=== PATIENT | female | born 1970 | race Caucasian/White ===

== ENCOUNTER 2017-12-01 16:19 | Emergency (ER) | payer OTHER ==
[~2017-12-01] VITALS: Ht 167.6 cm; Wt 68.0 kg
[~2017-12-01 16:19] MED LIST: ATIVAN0.5 MG PO
[2017-12-01 18:50] VITALS: BP 139/81
== END 2017-12-01 18:50 | disposition home or self-care (01) | DRG 914 ==
LOC: ED 16:19
DX: S09.90XA Unspecified injury of head, initial encounter (principal); S00.83XA Contusion of other part of head, initial encounter; W22.8XXA Striking against or struck by other objects, initial encounter; Y93.G3 Activity, cooking and baking; Y92.511 Restaurant or cafe as the place of occurrence of the external cause